=== PATIENT | female | born 1990 | race African-American/Black ===

== ENCOUNTER 2020-05-15 19:14 | Emergency (ER) | payer OTHER, SELFPAY ==
--- NOTE | 2020-05-15 19:24 | ED.FEMALEGU ---
HPI - Female Genitourinary General Chief complaint: Urogenital-Female Stated complaint: uti Time Seen by Provider: 05/15/20 19:30 Source: patient Mode of arrival: ambulatory Limitations: no limitations History of Present Illness HPI Narrative: Alaina Shepherd is a 29 yo female with a PMH of DM, high cholesterol, who comes [facility] with vaginal discharge that she believes to be a fungal infection or bacterial infection. She has been with the same partner for a number of years and does not believe that it is an STD or that she needs to worry about an STD Patient has been recording blood pressure for her doctor and journaling. Related Data Home Medications Medication Instructions Recorded Confirmed albuterol sulfate 2 puff INHALATION Q6H PRN 05/15/20 05/15/20 atorvastatin 20 mg PO DAILY 05/15/20 05/15/20 metformin 500 mg PO BID 05/15/20 05/15/20 montelukast 10 mg PO DAILY 05/15/20 05/15/20 Allergies Allergy/AdvReac Type Severity Reaction Status Date / Time No Known Allergies Allergy Verified 05/15/20 19:33 Review of Systems Review of Systems: Narrative: CONSTITUTIONAL: Denies fever, chills, sweats. EYES: Denies visual changes, redness, discharge. ENT: Denies rhinorrhea, congestion, sore throat, otalgia. CARDIOVASCULAR: Denies chest pain, palpitations, edema. RESPIRATORY: Denies dyspnea, wheezing, cough GASTROINTESTINAL: Denies abdominal pain, nausea, vomiting, diarrhea. GENITOURINARY: Denies dysuria, hematuria, has abnormal discharge SKIN: Denies rash or itching. NEUROLOGIC: Denies numbness, or focal weakness. PSYCHIATRIC: Denies anxiety or depression. [facility] Past Medical History Medical History Diabetes High cholesterol Family History Family History (Updated 05/15/20 @ 19:42 by Terri Cordova CNP) Other Diabetes mellitus High cholesterol Hypertension Social History Social History (Updated 05/15/20 @ 19:43 by Terri Cordova CNP) Smoking status: Never smoker Alcohol intake: current Comments At time of signature, I agree with nursing past medical, surgical, social and family history. There is no relevant family history pertinent to the presenting complaint. Blood pressure elevated; patient 's doctor is having pt keep log of BP Exam Narrative: Exam Narrative: GENERAL: This is a well-nourished, well-developed patient, in no distress. HEAD: normocephalic, atraumatic. EYES: Sclera clear/white. Vision is grossly intact. EARS: External ears normal, . Hearing grossly intact. NOSE: External nose normal without nasal discharge, nares without redness, no rhinorrhea. THROAT: Mucous membranes moist, NECK: Neck supple, CARDIOVASCULAR: Regular rate and rhythm without murmurs, gallops, or rubs. RESPIRATORY: Clear to auscultation. Breath sounds equal bilaterally. No wheezes, rales, or rhonchi. GASTROINTESTINAL: Abdomen soft, non-tender, : Pelvic exam done-has minimal mild right thin discharge with some irritation in the vaginal vault no lesions no CMT tenderness no adnexal tenderness SKIN: warm, intact with no suspicious lesions or rash, good texture and turgor. NEURO: awake, alert, and oriented to person, place and time. There were no obvious focal neurologic abnormalities. Steady gait EXTREMITIES: Normal range of motion. BACK: Nontender without deformity Course Course Emergency Course: Patient comes to [facility] with complaints of possible bacterial vaginosis Pelvic exam done-no STD check as pelvic exam consistent for bacterial vaginosis Started on Flagyl with Diflucan at the end of the antibiotics Vital Signs Vital signs: Vital Signs Temperature 98.6 F 05/15/20 19:29 Pulse Rate 91 05/15/20 19:29 Respiratory Rate 16 05/15/20 19:29 Blood Pressure 140/92 H 05/15/20 19:29 Pulse Oximetry 100 05/15/20 19:29 Temperature 98.6 F 05/15/20 19:29 Pulse Rate 91 05/15/20 19:29 Respiratory Rate 16 05/15/20 19:29
[2020-05-15 19:29] VITALS: BP 140/92; PULSE 91; RESP 16; TEMP 37; O2SAT 100
== END 2020-05-15 19:55 | disposition home or self-care (01) ==
PROVIDERS: Emergency Provider Nurse Practitioner; PCP Nurse Practitioner Family
DX: N76.0 Acute vaginitis (principal); E11.9 Type 2 diabetes mellitus without complications; E78.00 Pure hypercholesterolemia, unspecified
CPT/HCPCS: 81003; 99212; G0463

== ENCOUNTER 2021-02-23 12:45 | Emergency (ER) | payer OTHER, SELFPAY ==
--- NOTE | 2021-02-23 12:49 | ED.URI ---
HPI - URI/Sore Throat General Chief Complaint: Upper Respiratory Infection Stated Complaint: sorethroat,cough,fatigue Time Seen by Provider: 02/23/21 12:49 Source: patient and RN notes reviewed History of Present Illness HPI Narrative: Patient is a 30-year-old female presents the urgent care with complaints of sore throat, cough and fatigue. Patient states that started 2 days ago. Denies of any known exposure to Covid, influenza or strep. Patient states that she is prone to strep. Denies of any fever, chills, nausea, vomiting. Patient has not taken anything [id number] for her symptoms. Patient has not been Covid vaccinated. No other complaints. No acute distress noted. Patient aware of the plan of care. Some parts of this dictation were generated by voice recognition software and may contain typographical and/or grammatical inaccuracies. Related Data Home Medications Medication Instructions Recorded Confirmed No Home Medications 02/23/21 02/23/21 Allergies Allergy/AdvReac Type Severity Reaction Status Date / Time No Known Allergies Allergy Verified 02/23/21 13:01 Review of Systems Review of Systems: CONSTITUTIONAL: Denies fever, chills, or sweats. Reports of fatigue EYES: Denies visual changes, redness, or discharge. ENT: Denies rhinorrhea, congestion, otalgia. Ports of sore throat CARDIOVASCULAR: Denies chest pain, palpitations, or edema. RESPIRATORY: Reports of cough without dyspnea GASTROINTESTINAL: Denies abdominal pain, nausea, vomiting, or diarrhea. GENITOURINARY: Denies dysuria or hematuria. SKIN: Denies rash or itching. MUSCULOSKELETAL: Denies back pain, joint pain, or myalgia. NEUROLOGIC: Denies headache, numbness, or weakness. All other systems reviewed are negative, except as documented in HPI. [facility] Past Medical History Medical History Diabetes High cholesterol Family History Family History (Updated 05/15/20 @ 19:42 by Terri Cordova CNP) Other Diabetes mellitus High cholesterol Hypertension Social History Social History (Updated 05/15/20 @ 19:43 by Terri Cordova CNP) Smoking status: Never smoker Alcohol intake: current Comments At the time of my signature, I reviewed and agree with the nursing past medical, surgical, social, and family history. There is no relevant family history pertinent to the patient complaint. Exam Narrative: GENERAL: This is a well-nourished, well-developed patient, in no apparent distress. HEAD: normocephalic, atraumatic. EYES: PERRL. Sclera clear/white. Vision is grossly intact. EARS: External ears normal, auditory canals clear and without drainage, TMs normal without perforation. Hearing grossly intact. NOSE: External nose normal with no obvious nasal discharge, nares without redness, no rhinorrhea. THROAT: Mucous membranes moist, mild erythema noted posterior oropharynx with mild postnasal drainage NECK: Neck supple CARDIOVASCULAR: Regular rate and rhythm without murmurs, gallops, or rubs. RESPIRATORY: Clear to auscultation. Breath sounds equal bilaterally. No wheezes, rales, or rhonchi. SKIN: warm, intact with no suspicious lesions or rash, good texture and turgor. NEURO: awake, alert, and oriented to person, place and time. There were no obvious focal neurologic abnormalities. EXTREMITIES: No clubbing, cyanosis, or edema. Course Vital Signs Vital signs: Vital Signs Temperature 97.5 F L 02/23/21 12:54 Pulse Rate 97 02/23/21 12:54 Respiratory Rate 18 02/23/21 12:54 Blood Pressure 129/91 H 02/23/21 12:54 Pulse Oximetry 99 02/23/21 12:54 Temperature 97.5 F L 02/23/21 12:54 Pulse Rate 97 02/23/21 12:54 Respiratory Rate 18 02/23/21 12:54 Blood Pressure 129/91 H 02/23/21 12:54 Pulse Oximetry 99 02/23/21 12:54 Reviewed-patient is informed that they may have pre-hypertension or hypertension based on a blood pressure reading in the department.
[2021-02-23 12:54] VITALS: BP 129/91; PULSE 97; RESP 18; TEMP 36.4; O2SAT 99
== END 2021-02-23 13:18 | disposition home or self-care (01) ==
PROVIDERS: Emergency Provider Nurse Practitioner Family; PCP Nurse Practitioner Family
DX: J02.9 Acute pharyngitis, unspecified (principal); E11.9 Type 2 diabetes mellitus without complications
CPT/HCPCS: 87081; 87880; 99213; G0463

== ENCOUNTER 2021-03-01 12:52 | Emergency (ER) | payer OTHER, SELFPAY ==
[2021-03-01 13:00] VITALS: BP 111/78; PULSE 94; RESP 18; TEMP 36.8; O2SAT 100
--- NOTE | 2021-03-01 13:31 | ED.FEMALEGU ---
HPI - Female Genitourinary General Chief complaint: Urogenital-Female Stated complaint: sorethroat Source: patient and RN notes reviewed History of Present Illness HPI Narrative: 30-year-old female that was contacted by a male that she previously had sexual encounters with and notified that he had been diagnosed with chlamydia/gonorrhea. Patient denies any painful urination, discharge, dysuria pelvic pain upper quadrant pain, SOB, CP, palpitation, extremity numbness, lightheadedness, dizziness, constipation, diarrhea, chills, or fever. Related Data Home Medications Medication Instructions Recorded Confirmed No Home Medications 02/23/21 03/01/21 Allergies Allergy/AdvReac Type Severity Reaction Status Date / Time No Known Allergies Allergy Verified 03/01/21 12:57 Review of Systems Review of Systems: A 14 organ system Review of Systems was performed and pertinent positives included in the HPI, otherwise remaining ROS is negative. [facility] Past Medical History Medical History Diabetes High cholesterol Family History Family History (Updated 03/01/21 @ 13:34 by BLAINE Morales) Other Diabetes mellitus Family history non-contributory High cholesterol Hypertension Social History Social History Smoking status: Never smoker Alcohol intake: current Exam Narrative: GENERAL: This is a well-nourished, well-developed patient, in no apparent distress. HEAD: normocephalic, atraumatic. EYES: PERRL. Sclera clear/white. Vision is grossly intact. EARS: External ears normal, auditory canals clear and without drainage, TMs normal without perforation. Hearing grossly intact. NOSE: External nose normal with no obvious nasal discharge, nares without redness, no rhinorrhea. THROAT: Mucous membranes moist, posterior pharynx clear. NECK: Neck supple, non-tender without lymphadenopathy, masses or thyromegaly. CARDIOVASCULAR: Regular rate and rhythm without murmurs, gallops, or rubs. RESPIRATORY: Clear to auscultation. Breath sounds equal bilaterally. No wheezes, rales, or rhonchi. GASTROINTESTINAL: Abdomen soft, non-tender, nondistended. Bowel sounds are active. No hepato-splenomegaly, or palpable masses. No guarding. SKIN: warm, intact with no suspicious lesions or rash, good texture and turgor. NEURO: awake, alert, and oriented to person, place and time. There were no obvious focal neurologic abnormalities. Steady gait EXTREMITIES: Normal range of motion. No edema. No calf tenderness. Negative Homans sign bilaterally. BACK: Nontender without deformity or crepitance. No flank tenderness. Course Course Emergency Course: Patient will be treated for gonorrhea chlamydia with Rocephin 500 mg IM and azithromycin 1 g p.o.. UA clean test negative Vital Signs Vital signs: Vital Signs Temperature 98.3 F 03/01/21 13:00 Pulse Rate 94 03/01/21 13:00 Respiratory Rate 18 03/01/21 13:00 Blood Pressure 111/78 03/01/21 13:00 Pulse Oximetry 100 03/01/21 13:00 Temperature 98.3 F 03/01/21 13:00 Pulse Rate 94 03/01/21 13:00 Respiratory Rate 18 03/01/21 13:00 Blood Pressure 111/78 03/01/21 13:00 Pulse Oximetry 100 03/01/21 13:00 MDM - Female Genitourinary Differential Diagnosis Differential diagnosis: Likely urinary tract infection, vaginitis and other (STD) Lab Data Labs: Lab Results 03/01/21 Range/Units 13:17 C.trachomatis RNA (TMA) Pending N.gonorrhoeae RNA (TMA) Pending [facility] Bedside Result Negative Reference Range: Negative Urine Glucose Negative Reference Range: Negative Urine Bilirubin Negative Reference Range: Negative Urine Ketone Negative
[2021-03-01] MEDS: cefTRIAXone 500 MG VIAL IM (13:36)
[2021-03-01] MEDS: AZITHROMYCIN 250 MG TABLET 1000 MG PO (13:36)
== END 2021-03-01 13:52 | disposition home or self-care (01) ==
PROVIDERS: Emergency Provider Nurse Practitioner; PCP Nurse Practitioner Family
DX: Z20.2 Contact with and (suspected) exposure to infections with a predominantly sexual mode of transmission (principal); E11.9 Type 2 diabetes mellitus without complications; E78.00 Pure hypercholesterolemia, unspecified
CPT/HCPCS: 81003; 81025; 87491; 87591; 87661; 96372; 99214; A9270; G0463; J0696

== ENCOUNTER 2021-04-19 16:24 | Emergency (ER) | payer OTHER, SELFPAY ==
[2021-04-19 16:33] VITALS: BP 129/90; PULSE 92; RESP 18; TEMP 37; O2SAT 100
--- NOTE | 2021-04-19 16:40 | ED.FEMALEGU ---
HPI - Female Genitourinary General Chief complaint: Urogenital-Female Stated complaint: Female Urogenital Time Seen by Provider: 04/19/21 16:41 Source: patient, RN notes reviewed and old records reviewed Mode of arrival: ambulatory Limitations: no limitations History of Present Illness HPI Narrative: 30 year old female who presents to [facility] care with complaints of 2 day history of vaginal white discharge with itching reports no odor of discharge. Patient reports that she has no frequency of urination or any burning with urination. Patient received Rocephin and Azithromycin in February most recent antibiotic history. Patient states that she was previously on metformin and her doctor took her off of it and her last HgbA1C around 6, reports that she doesn't know when she is suppose to follow up with her doctor in regards to her diabetes. Patient states that her symptoms are similar to when she has had previous yeast infection does not want culture sent just wants treated. MD elicited complaint: vaginal discharge and genital itching Related Data Allergies Allergy/AdvReac Type Severity Reaction Status Date / Time No Known Allergies Allergy Verified 04/19/21 16:38 Review of Systems Review of Systems: CONSTITUTIONAL: Denies fever, chills, or sweats. EYES: Denies visual changes, redness, or discharge. ENT: Denies rhinorrhea, congestion, sore throat, or otalgia. CARDIOVASCULAR: Denies chest pain, palpitations, or edema. RESPIRATORY: Denies cough or dyspnea. GASTROINTESTINAL: Denies abdominal pain, nausea, vomiting, or diarrhea. GENITOURINARY: Denies dysuria or hematuria, vaginal discharge and itching SKIN: Denies rash or itching. MUSCULOSKELETAL: Denies back pain, joint pain, or myalgia. NEUROLOGIC: Denies headache, numbness, or weakness. PSYCHIATRIC: Denies anxiety or depression. All systems reviewed & are unremarkable except as noted in HPI and below PMFSH Past Medical History Medical History (Updated 04/19/21 @ 19:01 by Ana Rosa Rodriguez NP) Diabetes High cholesterol Seasonal allergies Strep throat Surgical History Surgical History (Updated 04/19/21 @ 19:01 by Ana Rosa Rodriguez NP) No history of previous surgery Family History Family History Other Diabetes mellitus Family history non-contributory High cholesterol Hypertension Social History Social History Smoking status: Never smoker Alcohol intake: current Comments At time of signature, agree with nursing past medical, surgical, social and family history. There is no relevant family history pertinent to the presenting complaint Exam Narrative: GENERAL: Well-appearing, well-nourished, and in no acute distress. HEAD: Normocephalic, atraumatic. EYES: PERRLA and EOMI. ENT: Nares clear, no rhinorrhea or epistaxis. Mucous membranes moist. NECK: Supple.no lymphadenopathy CHEST: Clear to auscultation. No respiratory distress.SAO2 100% on room air HEART: Regular rate and rhythm. No murmur heard. Normal peripheral pulses. ABDOMEN: Soft, nontender, nondistended, normal active bowel sounds. EXTREMITIES: Normal range of motion. No edema. SKIN: Warm, dry, no rash. NEURO: No focal deficits. Alert and oriented x3. Course Course Level of Care: Express Care Visit Vital Signs Vital signs: Vital Signs Temperature 37.0 C 04/19/21 16:33 Pulse Rate 92 04/19/21 16:33 Respiratory Rate 18 04/19/21 16:33 Blood Pressure 129/90 04/19/21 16:33 Pulse Oximetry 100 04/19/21 16:33 Temperature 37.0 C 04/19/21 16:33 Pulse Rate 92 04/19/21 16:33 Respiratory Rate 18 04/19/21 16:33 Blood Pressure 129/90 04/19/21 16:33 Pulse Oximetry 100 04/19/21 16:33 MDM - Female Genitourinary Differential Diagnosis Differential diagnosis: Likely urinary tract infection, bacterial vaginosis, cervicitis and vaginitis Medical Records Attestatio
== END 2021-04-19 16:58 | disposition home or self-care (01) ==
PROVIDERS: Emergency Provider Registered Nurse; PCP Nurse Practitioner Family
DX: B37.3 Candidiasis of vulva and vagina (principal); E11.9 Type 2 diabetes mellitus without complications; E78.00 Pure hypercholesterolemia, unspecified
CPT/HCPCS: 81003; 99213; G0463

== ENCOUNTER 2021-07-06 16:22 | Emergency (ER) | payer OTHER, SELFPAY ==
[2021-07-06 16:50] VITALS: BP 148/98; PULSE 80; RESP 18; TEMP 36.8; O2SAT 100
--- NOTE | 2021-07-06 17:01 | ED.URI ---
HPI - URI/Sore Throat General Chief Complaint: Upper Respiratory Infection Stated Complaint: Sore Throat,Body Aches,Headache Time Seen by Provider: 07/06/21 17:07 Source: patient Mode of arrival: ambulatory Limitations: no limitations History of Present Illness HPI Narrative: Alaina Shepherd is a 30 yo female with PMH diabetes and high cholesterol who comes to [facility] with complaints of sore throat and general upper respiratory symptoms over the last few days Related Data Home Medications Medication Instructions Recorded Confirmed atorvastatin 20 mg PO DAILY 07/06/21 07/06/21 metformin 500 mg PO BID 07/06/21 07/06/21 montelukast 10 mg PO DAILY 07/06/21 07/06/21 Allergies Allergy/AdvReac Type Severity Reaction Status Date / Time No Known Allergies Allergy Verified 07/06/21 16:53 Review of Systems Review of Systems: CONSTITUTIONAL: Denies fever, chills, sweats. EYES: Denies visual changes, redness, discharge. ENT: Denies rhinorrhea, has congestion, has sore throat, otalgia. CARDIOVASCULAR: Denies chest pain, palpitations, edema. RESPIRATORY: Denies dyspnea, wheezing, cough GASTROINTESTINAL: Denies abdominal pain, nausea, vomiting, diarrhea. GENITOURINARY: Denies dysuria, hematuria, abnormal discharge SKIN: Denies rash or itching. NEUROLOGIC: Denies numbness, or focal weakness. PSYCHIATRIC: Denies anxiety or depression. PMFSH Past Medical History Medical History Diabetes High cholesterol Seasonal allergies Strep throat Surgical History Surgical History No history of previous surgery Family History Family History Other Diabetes mellitus Family history non-contributory High cholesterol Hypertension Social History Social History Smoking status: Never smoker Alcohol intake: current Comments At time of signature, I agree with nursing past medical, surgical, social and family history. There is no relevant family history pertinent to the presenting complaint. Patient has a hypertension today in office - to discuss with pcp Exam Narrative: GENERAL: This is a well-nourished, well-developed patient, in mild distress. HEAD: normocephalic, atraumatic. EYES: PERRL. Sclera clear/white. Vision is grossly intact. EARS: External ears normal, auditory canals clear and without drainage, TMs normal without perforation. Hearing grossly intact. NOSE: External nose normal without nasal discharge, nares without redness, no rhinorrhea. THROAT: Mucous membranes moist, posterior pharynx erythema with submandibular lymph nodes NECK: Neck supple, non-tender CARDIOVASCULAR: Regular rate and rhythm without murmurs, gallops, or rubs. RESPIRATORY: Clear to auscultation. Breath sounds equal bilaterally. No wheezes, rales, or rhonchi. GASTROINTESTINAL: Abdomen soft, non-tender, SKIN: warm, intact with no suspicious lesions or rash, good texture and turgor. NEURO: awake, alert, and oriented to person, place and time. There were no obvious focal neurologic abnormalities. Steady gait EXTREMITIES: Normal range of motion. BACK: Nontender without deformity Course Course Emergency Course: Patient has sore throat and general respiratory symptoms for the last few days Strep test is positive Amoxicillin 875 1 twice daily and Tylenol for pain; ordered lancets for patient Level of Care: Express Care Visit Vital Signs Vital signs: Vital Signs Temperature 98.3 F 07/06/21 16:50 Pulse Rate 80 07/06/21 16:50 Respiratory Rate 18 07/06/21 16:50 Blood Pressure 148/98 H 07/06/21 16:50 Pulse Oximetry 100 07/06/21 16:50 Temperature 98.3 F 07/06/21 16:50 Pulse Rate 80 07/06/21 16:50 Respiratory Rate 18 07/06/21 16:50 Blood Pressure 148/98 H 07/06/21 16:50 Pulse Oximetry 100 04/
[2021-07-06 17:40] LABS: Glucose Point of Care 110 mg/dl (65-105)
== END 2021-07-06 17:43 | disposition home or self-care (01) ==
PROVIDERS: Emergency Provider Nurse Practitioner; PCP Nurse Practitioner Family
DX: J02.0 Streptococcal pharyngitis (principal); E11.9 Type 2 diabetes mellitus without complications; E78.00 Pure hypercholesterolemia, unspecified
CPT/HCPCS: 82948; 87804; 87880; 99213; G0463

== ENCOUNTER 2021-10-07 15:53 | Emergency (ER) | payer OTHER, SELFPAY ==
[2021-10-07 15:59] VITALS: BP 139/82; PULSE 94; RESP 16; TEMP 37; O2SAT 100
--- NOTE | 2021-10-07 16:16 | ED.FEMALEGU ---
HPI - Female Genitourinary General Chief complaint: Urogenital-Female Stated complaint: Female Urogenital Time Seen by Provider: 10/07/21 16:16 History of Present Illness HPI Narrative: Alaina Shepherd is a 30 yo female with a PMH with asthma, high cholesterol, diabetes, comes with complaints of burning with urination as well as some itching in her vaginal area. She states she has a history of yeast infection and is not concerned with any kind of an STI. Patient also has irregular periods that when she gains weight her menstrual cycle becomes very irregular; dago Walker has mentioned to her before that she could have PCOS but she is not officially diagnosed with same. She does not check her blood sugar regularly and cannot remember the level of the last time that she checked it Related Data Home Medications Medication Instructions Recorded Confirmed atorvastatin 20 mg tablet 20 mg PO DAILY 07/06/21 10/07/21 metformin 500 mg tablet,extended 500 mg PO BID 07/06/21 10/07/21 release 24 hr montelukast 10 mg tablet 10 mg PO DAILY 07/06/21 10/07/21 albuterol sulfate 90 mcg/actuation 2 puff inhalation PRN PRN 10/07/21 10/07/21 aerosol inhaler Shortness Of Breath Or Wheezing Allergies Allergy/AdvReac Type Severity Reaction Status Date / Time metronidazole AdvReac Mild Hives Verified 10/07/21 16:07 Review of Systems Review of Systems: CONSTITUTIONAL: Denies fever, chills, sweats. EYES: Denies visual changes, redness, discharge. ENT: Denies rhinorrhea, congestion, sore throat, otalgia. CARDIOVASCULAR: Denies chest pain, palpitations, edema. RESPIRATORY: Denies dyspnea, wheezing, cough GASTROINTESTINAL: Denies abdominal pain, nausea, vomiting, diarrhea. GENITOURINARY: Has dysuria, hematuria, abnormal discharge SKIN: Denies rash or itching. NEUROLOGIC: Denies numbness, or focal weakness. PSYCHIATRIC: Denies anxiety or depression. [facility] Past Medical History Medical History Diabetes High cholesterol Seasonal allergies Strep throat Surgical History Surgical History No history of previous surgery Family History Family History Other Diabetes mellitus Family history non-contributory High cholesterol Hypertension Social History Social History Smoking status: Never smoker Alcohol intake: current Comments At time of signature, I agree with nursing past medical, surgical, social and family history. There is no relevant family history pertinent to the presenting complaint. Exam Narrative: GENERAL: This is a well-nourished, well-developed patient, in mild distress. HEAD: normocephalic, atraumatic. EYES: Sclera clear/white. Vision is grossly intact. EARS: External ears normal, Hearing grossly intact. NOSE: External nose normal without nasal discharge, nares without redness, no rhinorrhea. THROAT: Mucous membranes moist, NECK: Neck supple, CARDIOVASCULAR: Regular rate and rhythm without murmurs, gallops, or rubs. RESPIRATORY: Clear to auscultation. Breath sounds equal bilaterally. No wheezes, rales, or rhonchi. GASTROINTESTINAL: Abdomen soft, non-tender, SKIN: warm, intact with no suspicious lesions or rash, good texture and turgor. NEURO: awake, alert, and oriented to person, place and time. There were no obvious focal neurologic abnormalities. Steady gait EXTREMITIES: Normal range of motion. BACK: Nontender without deformity Course Course Emergency Course: Patient comes with complaints of dysuria as well as burning in her vaginal area she has a history of having yeast infections and has had UTI in the past; she has no idea where her blood sugar actually is at this point UA shows no nitrates or leukocytes in the urine; 1 + protein Started on 3 days of cephalexin followed by 2 doses of Difl
== END 2021-10-07 16:30 | disposition home or self-care (01) ==
PROVIDERS: Emergency Provider Nurse Practitioner; PCP Nurse Practitioner Family
DX: R30.0 Dysuria (principal); N76.1 Subacute and chronic vaginitis; E11.9 Type 2 diabetes mellitus without complications; E78.00 Pure hypercholesterolemia, unspecified
CPT/HCPCS: 81003; 81025; 99213; G0463